=== PATIENT | male | born 1985 ===

== ENCOUNTER → 2017-03-12 | Outpatient (REF) | payer OTHER ==
[2017-03-12 13:12] LABS: % NORMAL FORMS 13 % (>=4); IMMOTILITY 37 %; NON PROGRESSIVE MOTILITY (c) 11 %; PROGRESSIVE MOTILITY (a) 52 % (>=32); SPERM ABNORMAL FORMS WBC'S NOTED; SPERM# 115.9 M/Ejac (>=39); TOTAL MOTILITY 63 % (>=40)
[2017-03-12 13:13] LABS: TOTAL FUNCTIONAL 17.1 M/Ejac.; TOTAL PROGRESSIVE SPERM 60.7 M/Ejac.
== END ==
LOC: M LAB REF 12:31
PROVIDERS: ATTEND Obstetrics & Gynecology
DX: N46.8 Other male infertility (principal)

== ENCOUNTER → 2017-06-18 | Outpatient (REF) | payer OTHER ==
[2017-06-18 10:08] LABS: SEMEN APPEARANCE OPAQUE (OPAQUE); SEMEN VOLUME 2.5 ml (4.0-5.0)
[2017-06-18 10:09] LABS: % NORMAL FORMS 19 % (>=4); IMMOTILITY 24 %; NON PROGRESSIVE MOTILITY (c) 11 %; PROGRESSIVE MOTILITY (a) 65 % (>=32); SEMEN VISCOSITY LIQUID (LIQUID); SEMEN pH 8.5 (7.0-8.0); SPERM ABNORMAL FORMS WBC'S NOTED; SPERM CONCENTRATION 31.6 M/ml (>=15.0); SPERM# 78.9 M/Ejac (>=39); TOTAL MOTILITY 76 % (>=40); TOTAL PROGRESSIVE SPERM 51.7 M/Ejac.; WBC CONCENTRATION >1 M/ml (<=1 M/ml)
[2017-06-18 10:10] LABS: TOTAL FUNCTIONAL 19.5 M/Ejac.
== END ==
LOC: M LAB REF 09:49
DX: N46.8 Other male infertility (principal)
CPT/HCPCS: 89320